=== PATIENT | female | born 1960 | race Caucasian/White ===

== ENCOUNTER → 2017-01-13 | Outpatient (CLI) | payer MEDICARE, MEDICAID ==
[2017-01-13 17:51] LABS: HEMATOCRIT 41.1 % (36.0-47.0); HEMOGLOBIN 14.4 g/dL (12.0-15.5); HGB HCT DIFFERENCE 2.1; MEAN CORPUSCULAR HEMOGLOBIN 35.6 pg (27.0-33.4); MEAN CORPUSCULAR HGB CONC 34.9 g/dL (32.0-36.0); MEAN CORPUSCULAR VOLUME 102 fl (80-97); RED BLOOD COUNT 4.03 10^6/uL (3.72-5.28); WHITE BLOOD COUNT 5.4 10^3/uL (4.0-10.5)
[2017-01-13 18:14] LABS: ANION GAP 15 (5-19); BLOOD UREA NITROGEN 9 mg/dL (7-20); CALCIUM 9.9 mg/dL (8.4-10.2); CARBON DIOXIDE 27 mmol/L (22-30); CHLORIDE 99 mmol/L (98-107); CREATININE RESULT 0.51 mg/dL (0.52-1.25); GLUCOSE 188 mg/dL (75-110); SODIUM 141.1 mmol/L (137-145)
== END ==
LOC: OD 16:38
PROVIDERS: ATTEND Internal Medicine Gastroenterology
DX: K62.5 Hemorrhage of anus and rectum (principal)
CPT/HCPCS: 36415; 80048; 85027

== ENCOUNTER → 2019-11-01 | Outpatient (CLI) | payer MEDICARE, MEDICAID ==
--- NOTE | 2019-11-01 12:56 | RADIOLOGY REPORT (SQ) ---
EXAM DESCRIPTION: MRI BREAST BILATERAL W/WO IMAGES COMPLETED DATE/TIME: 11/01/2019 9:02 am REASON FOR STUDY: UNSPECIFIED LUMP IN THE LEFT BREAST, UNSPECIFIED QUADRANT (N63.20) N63.20 UNSPECI FIED LUMP IN THE LEFT BREAST, UNSPECIFIED QUAD COMPARISON: Bilateral mammograms 10/19/2019, 08/11/2018, 06/04/2009 Left breast ultrasound 10/25/2019 PATHOLOGIC CORRELATION: None. CONTRAST TYPE AND DOSE: 20 mL Dotarem. RENAL FUNCTION: None required. TECHNIQUE: MR imaging performed with a dedicated breast coil. Pre contrast T1 and T2 weighted images . Pre contrast and post contrast enhanced T1 weighted images with fat saturation. Subtraction images, 3D thick and thin MIPS, and kinetic analysis performed on an independent workstat ion. (Crack workstation) Magnet strength: 1.5 T LIMITATIONS: Motion artifact, subtraction images are of limited diagnostic quality FINDINGS: BREAST DENSITY: c. The breasts are heterogeneously dense, which may obscure small masses. BACKGROUND PARENCHYMAL ENHANCEMENT:Mild. RIGHT BREAST: In the right lower outer quadrant, a broad area of abnormal increased STIR signal is pr esent involving nearly the entire lower outer quadrant of the breast. This is best shown on axial ST IR images 30-43. On post contrasted images, a vague area of enhancement in the lower outer quadrant is present correlating to the area of increased STIR signal. Review of mammograms 10/19/2019 demonstr ates calcifications variable in size shape and density along the lower outer quadrant, these combined mammographic and MRI findings are worrisome for DCIS. Stereotactic biopsy the calcifications right breast lower outer quadrant recommended. Calcifications of concern are 7 to 8 cm from the nipple. CHEST WALL: Normal tissue planes. No abnormal internal mammary nodes. AXILLA: Normal axillary and retro-pectoral nodes. LEFT BREAST:In the left breast lower outer quadrant, abnormal STIR increased signal is present involv ing nearly the entire left lower outer quadrant. On post contrasted images, a subtle area of contras t enhancement is present about 7 cm from the nipple laterally at the 3 o'clock position. Review of p rior mammograms demonstrates calcifications variable in size shape and density in this area. These c ombined mammographic and MRI findings are worrisome for DCIS. Stereotactic biopsy of calcifications in the left breast laterally 3 o'clock position 7 cm from the nipple recommended. Prior ultrasound from 10/25/2019 was reviewed. A hypoechoic shadowing mass was demonstrated left sonali st 3 o'clock periareolar region at that time. A 2nd solid nodule worrisome for malignancy was presen t left breast deep 2 to 3 o'clock position. These findings are worrisome for malignancy sonographica lly. Unable to find of correlating mass by MRI. Ultrasound-guided core biopsy, post biopsy clip lillie cement with follow-up mammogram recommended for the left breast masses identified at ultrasound CHEST WALL: Normal tissue planes. No abnormal internal mammary nodes. AXILLA: Normal axillary and retro-pectoral nodes. OTHER:No identified liver, bone, or lung lesions. No other significant incidental findings. IMPRESSION: Limited study due to motion between the pre and post contrasted images, limiting subtrac tion. Abnormal right breast lower outer quadrant correlates with dense tissue and amorphic calcifications a t mammography worrisome for DCIS. Stereotactic biopsy calcifications right breast lower outer quadra nt 7 cm from the nipple recommended Abnormal left breast lower outer quadrant correlates with dense tissue and pleomorphic calcifications at mammography worrisome for DCIS. Stereotactic biopsy left breast calcifications 3 o'clock positio n 8 cm from the nipple recommended. Outside ultrasound demonstrated a sonographically suspicious masses left breast periareolar region la terally, and in the left breast 2 o'clock position. Ultrasound-guided biopsy of these lesions is rec ommended. BIRAD: RIGHT BREAST: 5 Highly suggestive of malignancy. Appropriate action should be taken. LEFT BREAST: 5 Highly suggestive of malignancy. Appropriate action should be taken. RECOMMENDATION: RECOMMENDED FOLLOW-UP: Bilateral stereotactic biopsies, Left breast ultrasound-guided biopsy periareolar region and deep 2 to 3 o'clock position TECHNICAL DOCUMENTATION: JOB ID: [id number] 2010 [employer]- All Rights Reserved Reading location - IP/workstation name: [email or web address]
== END ==
LOC: RAD 07:35
PROVIDERS: ATTEND Nurse Practitioner Primary Care
DX: N63.23 Unspecified lump in the left breast, lower outer quadrant (principal)
CPT/HCPCS: 82565; A9576; C8908; 77049

== ENCOUNTER → 2019-11-22 | Day surgery (SDC) | payer MEDICARE, MEDICAID ==
[~2019-11-22] MED LIST: LIDOCAINE 1% INJ-PF (10 MG/ML) 30 ML SDV ONE; LIDOCAINE 1%/EPINEPHRINE INJ 20 ML VIAL ONE; LIDOCAINE 2% INJ (20 MG/ML) 20 ML MDV ONE
--- NOTE | 2019-11-28 13:00 | WOMENS IMAGING REPORT ---
EXAM DESCRIPTION: U/S BREAST BX; U/S BREAST BX EACH ADDT'L; BILAT DIAGNOSTIC MAMMO W/CAD IMAGES COMPLETED DATE/TIME: 11/27/2019 11:53 am; 11/22/2019 10:23 am; 11/22/2019 10:22 am; 11/22/2019 10 :00 am REASON FOR STUDY: R92.8 OTHER ABNORMAL AND INCONCLUSIVE FINDINGS ON DIAGNOSTIC IMAGING OF [place]; R 92. 8; R92.8 LEFT AND RIGHT R92.8 OTH ABN AND INCONCLUSIVE FINDINGS ON DX IMAGING OF BAR[place] R92.0 MAMMOGRA PHIC MICROCALCIFICATION FOUND ON DX IMAGING OF COMPARISON: Bilateral breast MRI 11/01/2019 Previous breast ultrasound 10/25/2019 Multiple previous mammograms TECHNIQUE: The procedure was discussed with the patient and the patient agreed to proceed. Three areas of concern were identified. Left breast 2 o'clock position, 10 cm from the nipple, left breast 3 o'clock periareolar region and right breast lower outer quadrant. Left breast 2 o'clock position: The patient was scanned and the area of interest in the 2 o'clock position 10 cm from the nipple of t he left breast was localized. This correlates with the area of concern on prior imaging studies. Thi s area was targeted for ultrasound-guided core biopsy. After sterile skin prep and 2.5 mL local lidocaine 1% skin and deep tissue anesthesia, a 14 gauge coa xial core biopsy needle was used to obtain several cores of tissue from the lesion. Under ultrasound guidance, a Ribbon clip was placed in the areas sampled. There were no immediate post-procedure com plications. Left breast 3 o'clock periareolar region: The patient was scanned and the area of interest in the 3 o'clock position periareolar left breast wa s localized. This correlates with the area of concern on prior imaging studies. This area was target ed for ultrasound-guided core biopsy. After sterile skin prep and 1.5 mL local lidocaine 1 % skin and deep tissue anesthesia, a 14 gauge co axial core biopsy needle was used to obtain several cores of tissue from the lesion. Under ultrasoun d guidance, a Ribbon clip was placed in the areas sampled. There were no immediate post-procedure co mplications. Right breast lower outer quadrant: The patient was scanned and the area of interest in the 7 to 8 o'clock position 6 cm from the nipple of the right breast was localized. This correlates with the area of concern on prior imaging studies . This area was targeted for ultrasound-guided core biopsy. After sterile skin prep and 2.0 mL local lidocaine 1 % skin and deep tissue anesthesia, a 14 gauge co axial core biopsy needle was used to obtain several cores of tissue from the lesion. Under ultrasoun d guidance, a Ribbon clip was placed in the areas sampled. There were no immediate post-procedure co mplications. MAMMOGRAM: Post-procedure two view bilateral mammogram was acquired in the digital mammogram suite. T he clips were in the expected location. No significant hematoma. Pathology yields a diagnosis of Left breast 2 o'clock position 10 cm from the nipple: Benign fibroadenoma toes tissue with benign br east ducts. Negative for atypia or malignancy Left breast 3 o'clock periareolar region: Sclerosing adenosis, fibrocystic changes. Negative for ma lignancy. Right breast lower outer quadrant: Fibrocystic changes, stromal microcalcifications identified. Neg ative for atypia or malignancy. Pathology is concordant. LIMITATIONS: None. FINDINGS: Ultrasound guided breast biopsy as described above. POST PROCEDURE MAMMOGRAMS FOR MARKER PLACEMENT: Yes IMPRESSION: ULTRASOUND-GUIDED CORE BIOPSY OF THE RIGHT AND LEFT BREAST YIELDS A DIAGNOSIS OF BENIGN TISSUE WITHOUT MALIGNANCY BI-RADS 2, BENIGN FINDINGS COMMENT: BI-RADS 2, BENIGN FINDINGS COMMUNICATION: There is results were discussed with the patient, 11/27/2019 1600 hours. She understan ds this is a benign result. She has plans to follow up with Dr. Urias Patient medication list reviewed: Yes- Quality ID# [id number]:Eligible professional attests to documenting i n the medical record they obtained, updated, or reviewed the patient's current medications. TECHNICAL DOCUMENTATION: JOB ID: [id number] 2010 [employer]- All Rights Reserved Reading location - IP/workstation name: [id number]
--- NOTE | 2019-11-28 13:10 | RADIOLOGY REPORT (SQ) ---
EXAM DESCRIPTION: STEREO BREAST BX; STEREO BREAST BX EACH ADDT'L; BILAT DIAGNOSTIC MAMMO W/CAD IMAGES COMPLETED DATE/TIME: 11/22/2019 12:34 pm; 11/27/2019 11:52 am; 11/23/2019 2:10 pm; 11/22/2019 12: 35 pm REASON FOR STUDY: OTHER ABNORMAL AND INCONCLUSIVE FINDINGS ON DX IMAGING OF BREAST (R92.8); BILAT PO ST STEREO R92.8 OTH ABN AND INCONCLUSIVE FINDINGS ON DX IMAGING OF [place] R92.0 MAMMOGRAPHIC MICROCALC IFICATION FOUND ON DX IMAGING OF COMPARISON: Bilateral breast MRI 11/01/2019 Previous breast ultrasound 10/25/2019 Multiple previous mammograms TECHNIQUE: Vacuum-assisted stereotactic-guided biopsy of the lesion in the right and left breasts. S erial progress stereotactic and single digital images acquired. PROCEDURE: The procedure was discussed with the patient, including possible complications such as bleeding, infection, nondiagnostic sample or possible findings such as atypical ductal hyperplasia wh ich would require additional surgery. Possible clip placement was explained. The patient agreed t o the procedure. Prior mammograms were reviewed. Areas of concern identified right breast 6 o'clock position indeterm inate calcifications, right breast 8 to 9 o'clock position indeterminate calcifications. Left far la teral breast indeterminate calcifications The patient was placed prone on the stereotactic table. The calcifications of concern right breast 6 o'clock position were localized stereotactically. The skin of the breast was prepped in sterile fa shion. Superficial and deep local anesthesia was provided. A small incision was made in the skin and the biopsy probe was advanced to the target. Using the vacuum-assisted core biopsy device, multiple core specimens were obtained. Continuous low dose infusion of local anesthesia was used during the procedure. A specimen radiograph was obtained. The radiograph demonstrated calcifications of concern in the bio psy tissue. Using ockdacry-xw-cwmomcrk technique an Hourglass clip was deployed at the biopsy site. Mammograph ic image confirmed presence of the clip. The probe was then removed and hemostasis obtained with m anual compression. A compression bandage was applied. Postoperative instructions were explained to the patient. The patient was placed prone on the stereotactic table. The calcifications of concern right breast 8 to 9 o'clock position were localized stereotactically. The skin of the breast was prepped in steril e fashion. Superficial and deep local anesthesia was provided. A small incision was made in the s kin and the biopsy probe was advanced to the target. Using the vacuum-assisted core biopsy device, multiple core specimens were obtained. Continuous low dose infusion of local anesthesia was used during the procedure. A specimen radiograph was obtained. The radiograph demonstrated calcifications of concern in the biop sy tissue. Using rhyllrsx-bs-rayyhlih technique a Barrel clip was deployed at the biopsy site. Mammographic i mage confirmed presence of the clip. The probe was then removed and hemostasis obtained with manual compression. A compression bandage was applied. Postoperative instructions were explained to the p atient. The patient was placed prone on the stereotactic table. The calcifications of concern left breast f ar lateral 3 o'clock position were localized stereotactically. The skin of the breast was prepped in sterile fashion. Superficial and deep local anesthesia was provided. A small incision was made in the skin and the biopsy probe was advanced to the target. Using the vacuum-assisted core biopsy device, multiple core specimens were obtained. Continuous low dose infusion of local anesthesia was used during the procedure. A specimen radiograph was obtained. The radiograph demonstrated calcifications of concern in the biop sy tissue. Using cgnjjdew-pt-amqrkocy technique an hourglass clip was deployed at the biopsy site. Mammographi c image confirmed presence of the clip. The probe was then removed and hemostasis obtained with man ual compression. A compression bandage was applied. Postoperative instructions were explained to t he patient. POST-PROCEDURE TWO VIEW DIGITAL MAMMOGRAM: An additional two view mammogram was recorded in the [facility] mammographic suite. Marker clips are present at the biopsy sites. LIMITATIONS: None. FINDINGS: PATHOLOGY: Right breast 6 o'clock position: Sclerosing fibroadenoma with calcifications, negative for malignancy Right breast 9 o'clock position: Sclerosing adenosis, fibrocystic changes, stromal microcalcificatio ns identified. Negative for malignancy. Left breast 3 o'clock position: Fibrocystic changes, stromal microcalcifications identified. Negati ve for malignancy. CONCORDANT: Yes POST PROCEDURE MAMMOGRAMS FOR MARKER PLACEMENT: Yes IMPRESSION: SUCCESSFUL STEREOTACTIC-GUIDED BIOPSY OF THE LESION IN THE RIGHT AND LEFT BREAST. BIOP SY RESULTS ARE CONCORDANT WITH IMAGING FINDINGS. BI-RADS 2, BENIGN FINDINGS. PATIENT CAN RESUME YEARLY BILATERAL SCREENING MAMMOGRAPHY/TOMOSYNTHESIS IN NOVEMBER 2020 FOLLOW-UP: PATIENT CAN RESUME ROUTINE SCREENING, PLEASE CONSIDER BILATERAL SCREENING TOMOSYNTHESIS GI HOSEA HETEROGENEOUSLY DENSE TISSUE NOTIFICATION: Findings discussed with the patient 11/27/2019. She understands that these were benign biopsies and that she should return to regular screening COMMENT: Patient medication list reviewed: Yes- Quality ID# [id number]:Eligible professional attests to doc umenting in the medical record they obtained, updated, or reviewed the patient's current medications. BI-RADS 2 TECHNICAL DOCUMENTATION: JOB ID: [id number] 2010 [employer]- All Rights Reserved Reading location - IP/workstation name: [id number]
--- NOTE | 2019-11-28 13:10 | RADIOLOGY REPORT (SQ) ---
EXAM DESCRIPTION: STEREO BREAST BX; STEREO BREAST BX EACH ADDT'L; BILAT DIAGNOSTIC MAMMO W/CAD IMAGES COMPLETED DATE/TIME: 11/22/2019 12:34 pm; 11/27/2019 11:52 am; 11/23/2019 2:10 pm; 11/22/2019 12: 35 pm REASON FOR STUDY: OTHER ABNORMAL AND INCONCLUSIVE FINDINGS ON DX IMAGING OF BREAST (R92.8); BILAT PO ST STEREO R92.8 OTH ABN AND INCONCLUSIVE FINDINGS ON DX IMAGING OF [place] R92.0 MAMMOGRAPHIC MICROCALC IFICATION FOUND ON DX IMAGING OF COMPARISON: Bilateral breast MRI 11/01/2019 Previous breast ultrasound 10/25/2019 Multiple previous mammograms TECHNIQUE: Vacuum-assisted stereotactic-guided biopsy of the lesion in the right and left breasts. S erial progress stereotactic and single digital images acquired. PROCEDURE: The procedure was discussed with the patient, including possible complications such as bleeding, infection, nondiagnostic sample or possible findings such as atypical ductal hyperplasia wh ich would require additional surgery. Possible clip placement was explained. The patient agreed t o the procedure. Prior mammograms were reviewed. Areas of concern identified right breast 6 o'clock position indeterm inate calcifications, right breast 8 to 9 o'clock position indeterminate calcifications. Left far la teral breast indeterminate calcifications The patient was placed prone on the stereotactic table. The calcifications of concern right breast 6 o'clock position were localized stereotactically. The skin of the breast was prepped in sterile fa shion. Superficial and deep local anesthesia was provided. A small incision was made in the skin and the biopsy probe was advanced to the target. Using the vacuum-assisted core biopsy device, multiple core specimens were obtained. Continuous low dose infusion of local anesthesia was used during the procedure. A specimen radiograph was obtained. The radiograph demonstrated calcifications of concern in the bio psy tissue. Using brfozipv-yx-palxpjco technique an Hourglass clip was deployed at the biopsy site. Mammograph ic image confirmed presence of the clip. The probe was then removed and hemostasis obtained with m anual compression. A compression bandage was applied. Postoperative instructions were explained to the patient. The patient was placed prone on the stereotactic table. The calcifications of concern right breast 8 to 9 o'clock position were localized stereotactically. The skin of the breast was prepped in steril e fashion. Superficial and deep local anesthesia was provided. A small incision was made in the s kin and the biopsy probe was advanced to the target. Using the vacuum-assisted core biopsy device, multiple core specimens were obtained. Continuous low dose infusion of local anesthesia was used during the procedure. A specimen radiograph was obtained. The radiograph demonstrated calcifications of concern in the biop sy tissue. Using fudprfkl-ce-lakzghbk technique a Barrel clip was deployed at the biopsy site. Mammographic i mage confirmed presence of the clip. The probe was then removed and hemostasis obtained with manual compression. A compression bandage was applied. Postoperative instructions were explained to the p atient. The patient was placed prone on the stereotactic table. The calcifications of concern left breast f ar lateral 3 o'clock position were localized stereotactically. The skin of the breast was prepped in sterile fashion. Superficial and deep local anesthesia was provided. A small incision was made in the skin and the biopsy probe was advanced to the target. Using the vacuum-assisted core biopsy device, multiple core specimens were obtained. Continuous low dose infusion of local anesthesia was used during the procedure. A specimen radiograph was obtained. The radiograph demonstrated calcifications of concern in the biop sy tissue. Using fifzqpwn-fk-oajkmjbv technique an hourglass clip was deployed at the biopsy site. Mammographi c image confirmed presence of the clip. The probe was then removed and hemostasis obtained with man ual compression. A compression bandage was applied. Postoperative instructions were explained to t he patient. POST-PROCEDURE TWO VIEW DIGITAL MAMMOGRAM: An additional two view mammogram was recorded in the [facility] mammographic suite. Marker clips are present at the biopsy sites. LIMITATIONS: None. FINDINGS: PATHOLOGY: Right breast 6 o'clock position: Sclerosing fibroadenoma with calcifications, negative for malignancy Right breast 9 o'clock position: Sclerosing adenosis, fibrocystic changes, stromal microcalcificatio ns identified. Negative for malignancy. Left breast 3 o'clock position: Fibrocystic changes, stromal microcalcifications identified. Negati ve for malignancy. CONCORDANT: Yes POST PROCEDURE MAMMOGRAMS FOR MARKER PLACEMENT: Yes IMPRESSION: SUCCESSFUL STEREOTACTIC-GUIDED BIOPSY OF THE LESION IN THE RIGHT AND LEFT BREAST. BIOP SY RESULTS ARE CONCORDANT WITH IMAGING FINDINGS. BI-RADS 2, BENIGN FINDINGS. PATIENT CAN RESUME YEARLY BILATERAL SCREENING MAMMOGRAPHY/TOMOSYNTHESIS IN NOVEMBER 2020 FOLLOW-UP: PATIENT CAN RESUME ROUTINE SCREENING, PLEASE CONSIDER BILATERAL SCREENING TOMOSYNTHESIS GI HOSEA HETEROGENEOUSLY DENSE TISSUE NOTIFICATION: Findings discussed with the patient 11/27/2019. She understands that these were benign biopsies and that she should return to regular screening COMMENT: Patient medication list reviewed: Yes- Quality ID# [id number]:Eligible professional attests to doc umenting in the medical record they obtained, updated, or reviewed the patient's current medications. BI-RADS 2 TECHNICAL DOCUMENTATION: JOB ID: [id number] 2010 [employer]- All Rights Reserved Reading location - IP/workstation name: [id number]
--- NOTE | 2019-11-28 13:10 | RADIOLOGY REPORT (SQ) ---
EXAM DESCRIPTION: STEREO BREAST BX; STEREO BREAST BX EACH ADDT'L; BILAT DIAGNOSTIC MAMMO W/CAD IMAGES COMPLETED DATE/TIME: 11/22/2019 12:34 pm; 11/27/2019 11:52 am; 11/23/2019 2:10 pm; 11/22/2019 12: 35 pm REASON FOR STUDY: OTHER ABNORMAL AND INCONCLUSIVE FINDINGS ON DX IMAGING OF BREAST (R92.8); BILAT PO ST STEREO R92.8 OTH ABN AND INCONCLUSIVE FINDINGS ON DX IMAGING OF [place] R92.0 MAMMOGRAPHIC MICROCALC IFICATION FOUND ON DX IMAGING OF COMPARISON: Bilateral breast MRI 11/01/2019 Previous breast ultrasound 10/25/2019 Multiple previous mammograms TECHNIQUE: Vacuum-assisted stereotactic-guided biopsy of the lesion in the right and left breasts. S erial progress stereotactic and single digital images acquired. PROCEDURE: The procedure was discussed with the patient, including possible complications such as bleeding, infection, nondiagnostic sample or possible findings such as atypical ductal hyperplasia wh ich would require additional surgery. Possible clip placement was explained. The patient agreed t o the procedure. Prior mammograms were reviewed. Areas of concern identified right breast 6 o'clock position indeterm inate calcifications, right breast 8 to 9 o'clock position indeterminate calcifications. Left far la teral breast indeterminate calcifications The patient was placed prone on the stereotactic table. The calcifications of concern right breast 6 o'clock position were localized stereotactically. The skin of the breast was prepped in sterile fa shion. Superficial and deep local anesthesia was provided. A small incision was made in the skin and the biopsy probe was advanced to the target. Using the vacuum-assisted core biopsy device, multiple core specimens were obtained. Continuous low dose infusion of local anesthesia was used during the procedure. A specimen radiograph was obtained. The radiograph demonstrated calcifications of concern in the bio psy tissue. Using jupeutii-mm-ekwrxurw technique an Hourglass clip was deployed at the biopsy site. Mammograph ic image confirmed presence of the clip. The probe was then removed and hemostasis obtained with m anual compression. A compression bandage was applied. Postoperative instructions were explained to the patient. The patient was placed prone on the stereotactic table. The calcifications of concern right breast 8 to 9 o'clock position were localized stereotactically. The skin of the breast was prepped in steril e fashion. Superficial and deep local anesthesia was provided. A small incision was made in the s kin and the biopsy probe was advanced to the target. Using the vacuum-assisted core biopsy device, multiple core specimens were obtained. Continuous low dose infusion of local anesthesia was used during the procedure. A specimen radiograph was obtained. The radiograph demonstrated calcifications of concern in the biop sy tissue. Using zftvuzpq-ju-lrqxpqgb technique a Barrel clip was deployed at the biopsy site. Mammographic i mage confirmed presence of the clip. The probe was then removed and hemostasis obtained with manual compression. A compression bandage was applied. Postoperative instructions were explained to the p atient. The patient was placed prone on the stereotactic table. The calcifications of concern left breast f ar lateral 3 o'clock position were localized stereotactically. The skin of the breast was prepped in sterile fashion. Superficial and deep local anesthesia was provided. A small incision was made in the skin and the biopsy probe was advanced to the target. Using the vacuum-assisted core biopsy device, multiple core specimens were obtained. Continuous low dose infusion of local anesthesia was used during the procedure. A specimen radiograph was obtained. The radiograph demonstrated calcifications of concern in the biop sy tissue. Using ohscmgwq-ih-pdrmskym technique an hourglass clip was deployed at the biopsy site. Mammographi c image confirmed presence of the clip. The probe was then removed and hemostasis obtained with man ual compression. A compression bandage was applied. Postoperative instructions were explained to t he patient. POST-PROCEDURE TWO VIEW DIGITAL MAMMOGRAM: An additional two view mammogram was recorded in the [facility]. Marker clips are present at the biopsy sites. LIMITATIONS: None. FINDINGS: PATHOLOGY: Right breast 6 o'clock position: Sclerosing fibroadenoma with calcifications, negative for malignancy Right breast 9 o'clock position: Sclerosing adenosis, fibrocystic changes, stromal microcalcificatio ns identified. Negative for malignancy. Left breast 3 o'clock position: Fibrocystic changes, stromal microcalcifications identified. Negati ve for malignancy. CONCORDANT: Yes POST PROCEDURE MAMMOGRAMS FOR MARKER PLACEMENT: Yes IMPRESSION: SUCCESSFUL STEREOTACTIC-GUIDED BIOPSY OF THE LESION IN THE RIGHT AND LEFT BREAST. BIOP SY RESULTS ARE CONCORDANT WITH IMAGING FINDINGS. BI-RADS 2, BENIGN FINDINGS. PATIENT CAN RESUME YEARLY BILATERAL SCREENING MAMMOGRAPHY/TOMOSYNTHESIS IN NOVEMBER 2020 FOLLOW-UP: PATIENT CAN RESUME ROUTINE SCREENING, PLEASE CONSIDER BILATERAL SCREENING TOMOSYNTHESIS GI HOSEA HETEROGENEOUSLY DENSE TISSUE NOTIFICATION: Findings discussed with the patient 11/27/2019. She understands that these were benign biopsies and that she should return to regular screening COMMENT: Patient medication list reviewed: Yes- Quality ID# [id number]:Eligible professional attests to doc umenting in the medical record they obtained, updated, or reviewed the patient's current medications. BI-RADS 2 TECHNICAL DOCUMENTATION: JOB ID: [id number] 2010 [employer]- All Rights Reserved Reading location - IP/workstation name: [id number]
== END ==
LOC: RAD 07:50
PROVIDERS: ATTEND Surgery
DX: R92.8 Other abnormal and inconclusive findings on diagnostic imaging of breast (principal); R92.0 Mammographic microcalcification found on diagnostic imaging of breast; N60.22 Fibroadenosis of left breast; N60.21 Fibroadenosis of right breast; N60.12 Diffuse cystic mastopathy of left breast; N60.11 Diffuse cystic mastopathy of right breast
CPT/HCPCS: 88342 ×2; 88341 ×2; 88305 ×2; 88312 ×2; 88313 ×2; 19081; 19082; 19083; 19084; 77066; J3490 ×2

== ENCOUNTER → 2020-05-20 | Outpatient (CLI) | payer MEDICARE, MEDICAID ==
--- NOTE | 2020-05-20 13:26 | WOMENS IMAGING REPORT ---
EXAM DESCRIPTION: 3D DX MAMMO BILAT IMAGES COMPLETED DATE/TIME: 05/20/2020 12:13 pm REASON FOR STUDY: R92.8 OTHER ABNORMAL AND INCONCLUSIVE FINDINGS ON DIAGNOSTIC IMAGING OF [place]AK R92.8 OTH ABN AND INCONCLUSIVE FINDINGS ON DX IMAGING OF [place] COMPARISON: Mammograms 2008, 2018, 2019 EXAM PARAMETERS: Standard craniocaudal and mediolateral oblique views of each breast recorded using digital acquisition and breast tomosynthesis. Additional bilateral 90 mediolateral views were obtained. Read with the assistance of CAD: .[employer] Version 9.2 LIMITATIONS: None. FINDINGS: RIGHT BREAST MASSES: No suspicious masses. CALCIFICATIONS: No new or suspicious calcifications. ARCHITECTURAL DISTORTION: None. ASYMMETRY: None noted. OTHER: Multiple right breast biopsy clips are present. LEFT BREAST MASSES: No suspicious masses. CALCIFICATIONS: No new or suspicious calcifications. ARCHITECTURAL DISTORTION: None. ASYMMETRY: None noted. OTHER: Multiple left breast biopsy clips are present IMPRESSION: No mammographic evidence for malignancy bilaterally BREAST DENSITY: c. The breasts are heterogeneously dense, which may obscure small masses. BIRAD: ASSESSMENT: 2 Benign findings. RECOMMENDATION: RECOMMENDED FOLLOW UP: Please continue yearly bilateral screening mammography/tomosy nthesis in May 2021 SPECIFIC INTERVENTION/IMAGING/CONSULTATION RECOMMENDED:No additional intervention/ imaging/consultati on needed at this time. COMMUNICATION:The negative/benign results were communicated to the patient. COMMENT: The patient has been notified of the results by letter per MQSA requirements. Additional no tification policies are in place for contacting patient with suspicious or incomplete findings. Quality ID #[id number]: The [employer] recommends an annual screening mammogram for women aged 40 years or over. This facility utilizes a reminder system to ensure that all patients receive reminder letters, and/or direct phone calls for appointments. This includes reminders for routine scr eening mammograms, diagnostic mammograms, or other Breast Imaging Interventions when appropriate. Th is patient will be placed in the appropriate reminder system. TECHNICAL DOCUMENTATION: FINDING NUMBER: (1) ASSESSMENT: (1) JOB ID: [id number] 2010 [employer]- All Rights Reserved Reading location - IP/workstation name: [email or web address]
== END ==
LOC: WI 11:49
PROVIDERS: ATTEND Surgery
DX: R92.8 Other abnormal and inconclusive findings on diagnostic imaging of breast (principal)
CPT/HCPCS: 77066; G0279; 77062